=== PATIENT | male | born 1985 | race Caucasian/White ===

== ENCOUNTER 2020-06-28 07:29 | Emergency (ER) | payer OTHER ==
[~2020-06-28] VITALS: Ht 177.8 cm; Wt 113.4 kg
[~2020-06-28 07:29] MED LIST: AZITHROMYCIN 2250 MG PO; CELEXA 20 MG TA20 MG PO; HYDROCODONE-AP1 EAC6 PO; IBUPROFEN 800800 M1 PO; IBUPROFEN 800800 MG PO; KEFLEX500 M1 PO; NORCO 5-325 TA1 EACH PO; VENTOLIN HFA 1818 GM INH; ZOFRAN ODT4 MG PO
[2020-06-28 07:53] LABS: ABSOLUTE EOSINOPHILS 0.1 thou/uL (0.0-0.7); ABSOLUTE LYMPHOCYTES 2.5 thou/uL (0.8-5.3); ABSOLUTE MONOCYTES 0.6 thou/uL (0.0-1.2); ABSOLUTE NEUTROPHILS 6.8 thou/uL (1.6-8.1); BASOPHILS 0.2 %; EOSINOPHILS 0.8 %; HEMATOCRIT 45.7 % (42.0-52.0); HEMOGLOBIN 15.4 gm/dL (14.0-18.0); LYMPHOCYTES 25.1 %; MCH 30.1 pg (26.0-34.0); MCHC 33.8 g/dL (28.0-37.0); MONOCYTES 5.9 %; MPV 7.9 fl. (7.2-11.1); NUCLEATED RBCS 0 /100WBC; PLATELET COUNT* 250 thou/uL (150-400); RBC 5.13 mil/uL (4.50-6.00); RDW-CV 13.3 % (10.5-14.5)
[2020-06-28 07:58] LABS: CALCIUM 8.9 mg/dL (8.5-10.1); POTASSIUM 4.4 mmol/L (3.5-5.1)
[2020-06-28 08:00] LABS: APTT 29.6 Seconds (25.0-31.3); PROTIME 10.5 Seconds (9.20-11.50)
[2020-06-28 08:11] LABS: ALBUMIN 3.9 g/dL (3.4-5.0); TOTAL BILIRUBIN 0.4 mg/dL (<0.1-1.0); TOTAL PROTEIN 7.5 g/dL (6.4-8.2)
[2020-06-28 09:34] VITALS: BP 104/59
--- NOTE | 2020-06-28 13:00 | EKG ---
[place] [address] ELECTROCARDIOGRAM REPORT Name: BALA NGUYEN Room: [facility]#: [id number] Admission: 06/28/20 Attend Phys: Discharge: 06/28/20 Date of : 87 Date of Service: 06/28/20 0734 Report #: [id number] THIS REPORT FOR: //name// [facility] ED Test Date: 2020-06-28 Test Time: 07:34:01 Pat Name: BALA NGUYEN Department: Room: Gender: Blood Or Blood Bank Technician: MARIBEL : 1985 Requested By: Ernesto Brewer Order Number: [id number] MD: Mariano Caraballo Measurements Intervals [place] Rate: 78 P: 57 FL: 125 QRS: 30 QRSD: 101 T: 43 QT: 381 QTc: 434 Interpretive Statements Sinus rhythm ST elev, probable normal early repol pattern No previous ECG available for comparison Electronically Signed On 06-28-2020 13:00:32 [employer] by Mariano Caraballo [email or web address] <ELECTRONICALLY SIGNED> By: Mariano Caraballo MD, [facility] [id number] 3 Mariano Caraballo MD, FAC /EPI
== END 2020-06-28 09:34 | disposition home or self-care (01) ==
LOC: M.ERS 07:29
PROVIDERS: Family Medicine
DX: R07.89 Other chest pain (principal); R42 Dizziness and giddiness; R53.83 Other fatigue; R06.02 Shortness of breath; F17.210 Nicotine dependence, cigarettes, uncomplicated; Z20.822 Contact with and (suspected) exposure to COVID-19; Z98.890 Other specified postprocedural states; Z87.442 Personal history of urinary calculi; Z91.040 Latex allergy status